=== PATIENT | male | born 1975 | race Caucasian/White ===

== ENCOUNTER 2018-04-13 03:53 | Emergency (ER) | payer OTHER ==
[~2018-04-13] VITALS: Ht 180.3 cm; Wt 135.2 kg
[2018-04-13] MEDS ORDERED: HYDROCODONE/APAP 5MG-325MG TAB PO ONE (04:15)
== END 2018-04-13 04:32 | disposition home or self-care (01) ==
LOC: FSED 03:53
DX: M10.9 Gout, unspecified (principal); I10 Essential (primary) hypertension
CPT/HCPCS: 99283